=== PATIENT | female | born 1995 | race Caucasian/White ===

== ENCOUNTER 2019-10-17 13:51 | Outpatient (CLI) | payer BC ==
--- NOTE | 2019-10-17 15:24 | ULT ---
ULTRASOUND RETROPERITONEUM COMPLETE: (RENAL) DATE: 10/17/2019 HISTORY: 24-year-old female with right flank pain FINDINGS: Right kidney measures 12 x 5 x 5.5 cm. There is moderate dilation of the right renal collecting system. Left kidney measures 12 x 5 x 5 cm. There is no left-sided hydronephrosis. Prevoid bladder volume is 40 mL. Post void bladder volume is 20 mL There are no Doppler images of the pelvis to indicate whether or not there is a right ureteral jet. T herefore, it is difficult to distinguish right obstructive uropathy from high-grade right hydronephrosis of .. IMPRESSION: Moderate right hydronephrosis. See above comments.
== END 2019-10-17 13:52 | disposition home or self-care (01) ==
LOC: SCSULT 13:51
PROVIDERS: ATTEND Advanced Practice Midwife
DX: R10.9 Unspecified abdominal pain (principal); N13.30 Unspecified hydronephrosis
CPT/HCPCS: 76770

== ENCOUNTER 2019-11-07 16:32 | Outpatient (CLI) | payer BC ==
--- NOTE | 2019-11-07 17:13 | ULT ---
US Renal Bilateral STANDARD HISTORY: Hydronephrosis. COMPARISON: 10/17/2019 exam. FINDINGS: Real-time imaging of the right and left kidneys were performed. The right kidney measures 1 2.2 and the left kidney 12.3 cm in size. There is marked right-sided hydronephrosis present. The left kidney is unremarkable. Bladder region shows a prominent left ureteral jet but only equivocal right-sided ureteral jet. IMPRESSION: Stable moderate right-sided hydronephrosis. This persisted after the bladder was complete ly emptied..
== END 2019-11-07 16:33 | disposition home or self-care (01) ==
LOC: SCSULT 16:32
PROVIDERS: ATTEND Urology
DX: N13.30 Unspecified hydronephrosis (principal)
CPT/HCPCS: 76770